=== PATIENT | female | born 1995 | race Hispanic/Latino ===

== ENCOUNTER 2022-03-01 18:15 | Day surgery (SDC) | payer OTHER ==
[2022-03-01 19:03] VITALS: BMI 35.3
[2022-03-01] MEDS ORDERED: hydrALAZINE 20 MG/ML VIAL SLOW IVP PRN (19:45)
== END 2022-03-01 20:25 | disposition home health service (06) ==
LOC: CSHLD/OP 18:15
PROVIDERS: ATTEND Family Medicine
DX: O26.893 Other specified pregnancy related conditions, third trimester (principal); R10.30 Lower abdominal pain, unspecified; Z3A.34 34 weeks gestation of pregnancy
CPT/HCPCS: 99282